=== PATIENT | male | born 1990 | race Caucasian/White ===

== ENCOUNTER 2019-07-15 16:33 | Observation (INO) ==
[~2019-07-15 16:33] MED LIST: Aminoglycoside Consult 1 EACH MC ONE
[2019-07-15] MEDS ORDERED: Clindamycin 600 MG/50 ML 600 MG/50 ML IV.SOLN IVPB ONE (19:02)
[2019-07-15] MEDS ORDERED: Ketorolac 15 MG/ML VIAL IVP ONE (19:04)
[2019-07-15 20:40] LABS: Basophils % 0.4 %; Eosinophils # 0.1 K/mcL (0.0-0.6); Eosinophils % 1.1 %; Hematocrit 42.1 % (37.5-50.1); Hemoglobin 14.5 g/dL (12.9-16.9); Immature Granulocytes % 0.3 % (0-4); Lymphocytes # 2.3 K/mcL (0.6-4.6); Lymphocytes % 20.3 %; Mean Corpuscular HGB Conc 34.4 g/dL (31.6-35.5); Mean Corpuscular Hemoglobin 29.8 pg (28.0-33.3); Mean Corpuscular Volume 86.4 fL (83.0-100.0); Mean Platelet Volume 9.4 fL (9.4-12.4); Monocytes # 1.1 K/mcL (0.0-1.3); Monocytes % 9.8 %; Neutrophils # 7.7 K/mcL (1.6-8.9); Platelet Count 305 K/mcL (140-400); Red Blood Count 4.87 M/mcL (4.19-5.50); Red Cell Distribution Width 12.4 % (11.5-14.5); Segmented Neutrophils % 68.1 %; White Blood Count 11.3 K/mcL (4.3-11.1)
[2019-07-15 21:34] LABS: Alanine Aminotransferase 14 Units/L (7-52); Albumin 4.1 g/dL (3.5-5.7); Albumin/Globulin Ratio 1.3 (1.1-2.2); Alkaline Phosphatase 71 Units/L (34-104); Aspartate Amino Transferase 14 Units/L (13-39); BUN/Creatinine Ratio 17 (6-26); Bilirubin,Total 0.5 mg/dL (0.3-1.0); Blood Urea Nitrogen 20 mg/dL (6-20); Calcium 9.4 mg/dL (8.6-10.3); Carbon Dioxide 25 mEq/L (23-29); Chloride 102 mEq/L (98-107); Globulin 3.1 g/dL (2.4-3.5); Glucose 126 mg/dL (70-105); Osmolality,Calculated 282 (280-300); Potassium 4.2 mEq/L (3.5-5.1); Sodium 134 mEq/L (136-145); Total Protein 7.2 g/dL (6.4-8.9); eGFR For African Americans > 60 (> 60); eGFR For Non-African Americans > 60 (> 60)
[2019-07-15] MEDS ORDERED: Isovue-370 500 ML BOTTLE IVP ONE (23:20)
[2019-07-15] MEDS ORDERED: Naloxone 0.4 MG/ML INJ IVP PRN (23:35)
[2019-07-15] MEDS ORDERED: 0.9 % Sodium Chloride 1,000 ML IV ONE (23:35)
[2019-07-15] MEDS ORDERED: Ketorolac 30 MG/ML VIAL IVP PRN (23:35)
[2019-07-15] MEDS ORDERED: Ondansetron ODT 4 MG TAB.RAPDIS SL PRN (23:35)
[2019-07-15] MEDS ORDERED: cefTRIAXone 2,000 MG in 0.9 % Sodium Chloride Mini Bag 100 ML IVPB ONE (23:37)
[2019-07-15] MEDS ORDERED: Vancomycin (wt based) 1,000 MG VIAL IVPB SCH (23:45)
[2019-07-16 02:50] LABS: Basophils % 0.2 %; Eosinophils # 0.1 K/mcL (0.0-0.6); Eosinophils % 1.1 %; Hematocrit 40.2 % (37.5-50.1); Hemoglobin 13.2 g/dL (12.9-16.9); Immature Granulocytes % 0.3 % (0-4); Lymphocytes # 1.8 K/mcL (0.6-4.6); Lymphocytes % 17.5 %; Mean Corpuscular HGB Conc 32.8 g/dL (31.6-35.5); Mean Corpuscular Hemoglobin 29.8 pg (28.0-33.3); Mean Corpuscular Volume 90.7 fL (83.0-100.0); Mean Platelet Volume 9.5 fL (9.4-12.4); Monocytes # 0.8 K/mcL (0.0-1.3); Neutrophils # 7.4 K/mcL (1.6-8.9); Platelet Count 259 K/mcL (140-400); Red Blood Count 4.43 M/mcL (4.19-5.50); Red Cell Distribution Width 12.4 % (11.5-14.5); Segmented Neutrophils % 72.9 %; White Blood Count 10.2 K/mcL (4.3-11.1)
[2019-07-16 03:10] LABS: BUN/Creatinine Ratio 21 (6-26); Blood Urea Nitrogen 21 mg/dL (6-20); Calcium 8.6 mg/dL (8.6-10.3); Carbon Dioxide 24 mEq/L (23-29); Chloride 104 mEq/L (98-107); Glucose 124 mg/dL (70-105); Osmolality,Calculated 282 (280-300); Sodium 134 mEq/L (136-145); eGFR For African Americans > 60 (> 60); eGFR For Non-African Americans > 60 (> 60)
[2019-07-16 10:39] LABS: Estimated Average Glucose 100 mg/dl
[2019-07-16 11:13] VITALS: BP 132/74
== END 2019-07-16 14:21 | disposition home or self-care (01) ==
LOC: 3ANU 16:33 → EMEROOARM 16:33 → 3ANU 23:20
PROVIDERS: ADMIT Internal Medicine; ATTEND Internal Medicine

== ENCOUNTER 2021-10-21 17:01 | Inpatient (IN) ==
[2021-10-21 18:29] LABS: Basophils % 0.2 %; Eosinophils # 0.1 K/mcL (0.0-0.6); Eosinophils % 0.7 %; Hematocrit 34.7 % (37.5-50.1); Hemoglobin 12.5 g/dL (12.9-16.9); Immature Granulocytes % 0.3 % (0-4); Lymphocytes # 1.8 K/mcL (0.6-4.6); Lymphocytes % 16.1 %; Mean Corpuscular Hemoglobin 31.2 pg (28.0-33.3); Mean Corpuscular Volume 86.5 fL (83.0-100.0); Mean Platelet Volume 9.4 fL (9.4-12.4); Monocytes # 0.8 K/mcL (0.0-1.3); Monocytes % 6.8 %; Neutrophils # 8.3 K/mcL (1.6-8.9); Platelet Count 264 K/mcL (140-400); Red Blood Count 4.01 M/mcL (4.19-5.50); Red Cell Distribution Width 12.7 % (11.5-14.5); Segmented Neutrophils % 75.9 %
[2021-10-21 18:51] LABS: BUN/Creatinine Ratio 17 (6-26); Blood Urea Nitrogen 17 mg/dL (6-20); Calcium 9.5 mg/dL (8.6-10.3); Carbon Dioxide 25 mEq/L (23-29); Chloride 102 mEq/L (98-107); Glucose 97 mg/dL (70-105); Osmolality,Calculated 281 (280-300); Potassium 3.9 mEq/L (3.5-5.1); Sodium 135 mEq/L (136-145); eGFR For African Americans > 60 (> 60); eGFR For Non-African Americans > 60 (> 60)
[2021-10-21 19:00] LABS: Troponin I 0.05 ng/mL (< 0.04)
[2021-10-21] MEDS ORDERED: Aspirin 325 MG TABLET PO ONE (19:25)
[2021-10-21] MEDS ORDERED: Naloxone 0.4 MG/ML INJ IVP PRN (20:05)
[2021-10-21] MEDS ORDERED: Ondansetron 4 MG/2 ML VIAL IVP PRN (20:05)
[2021-10-21] MEDS ORDERED: Perflutren Lipid Microsphere 1.3 ML in 0.9 % Sodium Chloride 8.7 ML IVP PRN (20:08)
[2021-10-21 22:12] LABS: Bilirubin,Urine Negative (Negative); Blood,Urine Negative (Negative); Clarity,Urine Clear (Clear); Color,Urine Yellow (Yellow); Glucose,Urine (UA) Normal (Normal); Ketones,Urine Negative (Negative); Leukocyte Esterase,Urine Negative (Negative); Nitrite,Urine Negative (Negative); Protein,Urine Trace mg/dL (Neg-Trace); Specific Gravity,Urine > 1.030 (1.010-1.025); Urobilinogen,Urine Normal (Normal)
[2021-10-21 22:13] LABS: Amphetamine Screen,Urine Negative ng/mL (Cutoff=1000); Barbiturate Screen,Urine Negative ng/mL (Cutoff=200); Benzodiazepines Screen,Urine Negative ng/mL (Cutoff=200); Cannabinoid Screen,Urine Negative ng/mL (Cutoff = 50); Cocaine Screen,Urine Negative ng/mL (Cutoff= 300); Opiate Screen,Urine Negative ng/mL (Cutoff=300); Phencyclidine Screen,Urine Negative ng/mL (Cutoff=25)
[2021-10-22 04:42] LABS: Basophils % 0.3 %; Eosinophils # 0.2 K/mcL (0.0-0.6); Eosinophils % 1.8 %; Hematocrit 39.1 % (37.5-50.1); Hemoglobin 13.2 g/dL (12.9-16.9); Immature Granulocytes % 0.3 % (0-4); Mean Corpuscular HGB Conc 33.8 g/dL (31.6-35.5); Mean Corpuscular Hemoglobin 29.1 pg (28.0-33.3); Mean Corpuscular Volume 86.1 fL (83.0-100.0); Mean Platelet Volume 9.7 fL (9.4-12.4); Monocytes # 0.8 K/mcL (0.0-1.3); Monocytes % 8.1 %; Neutrophils # 5.7 K/mcL (1.6-8.9); Platelet Count 290 K/mcL (140-400); Red Blood Count 4.54 M/mcL (4.19-5.50); Red Cell Distribution Width 12.9 % (11.5-14.5); Segmented Neutrophils % 58.5 %; White Blood Count 9.8 K/mcL (4.3-11.1)
[2021-10-22 04:54] LABS: INR 1.2
[2021-10-22 05:24] LABS: Troponin I 0.04 ng/mL (< 0.04)
[2021-10-22 06:06] LABS: Alanine Aminotransferase 15 Units/L (7-52); Albumin 3.8 g/dL (3.5-5.7); Albumin/Globulin Ratio 1.3 (1.1-2.2); Alkaline Phosphatase 62 Units/L (34-104); Aspartate Amino Transferase 16 Units/L (13-39); BUN/Creatinine Ratio 18 (6-26); Bilirubin,Direct 0.1 mg/dL (0.0-0.2); Bilirubin,Indirect 0.5 mg/dL (0.0-1.0); Bilirubin,Total 0.6 mg/dL (0.3-1.0); Blood Urea Nitrogen 17 mg/dL (6-20); Carbon Dioxide 23 mEq/L (23-29); Chloride 104 mEq/L (98-107); Chol/HDL Ratio 4.4 (0-4.9); Cholesterol 122 mg/dL (< 200); Glucose 112 mg/dL (70-105); HDL Cholesterol 28 mg/dL (40-59); LDL Cholesterol,Calculated 65 mg/dL (< 100); Magnesium 2.3 mg/dL (1.6-2.6); Osmolality,Calculated 290 (280-300); Potassium 3.9 mEq/L (3.5-5.1); Sodium 139 mEq/L (136-145); Thyroid Stimulating Hormone 1.983 mcIU/mL (0.340-5.600); Total Protein 6.8 g/dL (6.4-8.9); Triglycerides 143 mg/dL (< 150); eGFR For African Americans > 60 (> 60); eGFR For Non-African Americans > 60 (> 60)
[2021-10-22] MEDS: Aspirin Enteric Coated 81 MG Tablet PO SCH (08:01)
[2021-10-22] MEDS ORDERED: Heparin 1,000 UNITS/500 mL 500 ML ONE (15:03)
[2021-10-22] MEDS ORDERED: *HR* Midazolam HCl 2 MG/2 ML VIAL ONE ×2 (15:03→15:31)
[2021-10-22] MEDS ORDERED: *HR* FentaNYL (PF) 100 MCG/2 ML VIAL ONE (15:03)
[2021-10-22] MEDS ORDERED: 0.9 % Sodium Chloride 1,000 ML ONE (15:03)
[2021-10-22] MEDS ORDERED: *HR* Heparin 10,000 UNIT/10 ML VIAL ONE (15:03)
[2021-10-22] MEDS ORDERED: Nitroglycerin 1,000 MCG/5 ML VIAL IV ONE (15:04)
[2021-10-22] MEDS ORDERED: ISOVUE-370 200 ML INFUS..BTL ONE (15:04)
[2021-10-22] MEDS: Acetaminophen 325 MG TABLET PO PRN (18:52)
[2021-10-23] MEDS: Aspirin Enteric Coated 81 MG Tablet PO SCH (08:57)
[2021-10-23] MEDS: Metoprolol XL (24 HR) Succ 25 MG TAB.ER.24H PO SCH (20:14)
[2021-10-24] MEDS: Aspirin Enteric Coated 81 MG Tablet PO SCH (08:23)
[2021-10-24] MEDS: Metoprolol XL (24 HR) Succ 25 MG TAB.ER.24H PO SCH (08:23)
[2021-10-24] MEDS ORDERED: lisinopriL 10 MG TABLET PO SCH (09:00)
[2021-10-24] MEDS: lisinopriL 5 MG TABLET PO SCH (09:07)
[2021-10-24] MEDS ORDERED: *HR* FentaNYL (PF) 100 MCG/2 ML VIAL ONE (15:16)
[2021-10-24] MEDS ORDERED: *HR* Propofol 200 MG/20 ML VIAL IVP ONE (15:16)
[2021-10-24] MEDS ORDERED: *HR* Midazolam HCl 2 MG/2 ML VIAL ONE (15:16)
[2021-10-24] MEDS ORDERED: *HR* Rocuronium Bromide 50 MG/5 ML VIAL ONE ×2 (15:17→15:46)
[2021-10-24] MEDS ORDERED: Ondansetron 4 MG/2 ML VIAL ONE (15:17)
[2021-10-24] MEDS ORDERED: Lidocaine -MPF 2% 2 ML VIAL ONE (15:17)
[2021-10-24] MEDS ORDERED: Lidocaine HCL 4 ML Topical Solution (Laryng-O-Jet Kit Sterile Pak) TP ONE (15:17)
[2021-10-24] MEDS ORDERED: Sugammadex Sodium 200 MG/2 ML VIAL IV ONE (15:20)
[2021-10-24] MEDS ORDERED: 0.9 % Sodium Chloride 500 ML ONE (15:20)
[2021-10-24] MEDS ORDERED: *HR* Vasopressin 20 UNIT/ML VIAL ONE (15:22)
[2021-10-24] MEDS ORDERED: 0.9 % Sodium Chloride 1,000 ML ONE (15:33)
[2021-10-24] MEDS ORDERED: Metoprolol XL (24 HR) Succ 25 MG TAB.ER.24H PO SCH (21:00)
[2021-10-25] MEDS: lisinopriL 5 MG TABLET PO SCH (08:52)
[2021-10-25] MEDS: Aspirin Enteric Coated 81 MG Tablet PO SCH (08:52)
[2021-10-25 09:06] LABS: Basophils % 0.1 %; Hematocrit 41.1 % (37.5-50.1); Immature Granulocytes % 0.2 % (0-4); Lymphocytes # 1.4 K/mcL (0.6-4.6); Lymphocytes % 9.6 %; Mean Corpuscular HGB Conc 34.1 g/dL (31.6-35.5); Mean Corpuscular Hemoglobin 29.4 pg (28.0-33.3); Mean Corpuscular Volume 86.2 fL (83.0-100.0); Mean Platelet Volume 9.7 fL (9.4-12.4); Monocytes # 0.7 K/mcL (0.0-1.3); Monocytes % 5.1 %; Neutrophils # 12.3 K/mcL (1.6-8.9); Platelet Count 292 K/mcL (140-400); Red Blood Count 4.77 M/mcL (4.19-5.50); Red Cell Distribution Width 12.7 % (11.5-14.5); White Blood Count 14.5 K/mcL (4.3-11.1)
[2021-10-25 09:12] LABS: BUN/Creatinine Ratio 23 (6-26); Blood Urea Nitrogen 21 mg/dL (6-20); Calcium 9.2 mg/dL (8.6-10.3); Carbon Dioxide 23 mEq/L (23-29); Chloride 102 mEq/L (98-107); Glucose 109 mg/dL (70-105); Magnesium 2.1 mg/dL (1.6-2.6); Osmolality,Calculated 280 (280-300); Phosphorous 3.5 mg/dL (2.7-4.5); Potassium 4.3 mEq/L (3.5-5.1); Sodium 133 mEq/L (136-145); eGFR For African Americans > 60 (> 60); eGFR For Non-African Americans > 60 (> 60)
[2021-10-25] MEDS: Acetaminophen 325 MG TABLET PO PRN ×2 (11:51→22:24)
[2021-10-26] MEDS: Acetaminophen 325 MG TABLET PO PRN (07:36)
[2021-10-26] MEDS: Aspirin Enteric Coated 81 MG Tablet PO SCH (07:36)
[2021-10-26] MEDS ORDERED: Metoprolol XL (24 HR) Succ 25 MG TAB.ER.24H PO SCH (09:00)
[2021-10-26] MEDS: Metoprolol XL (24 HR) Succ 25 MG TAB.ER.24H PO SCH ×2 (09:53→10:46)
[2021-10-26 11:17] VITALS: BP 123/68; PULSE 63; TEMP 97.6; O2SAT 98
== END 2021-10-26 13:26 | disposition home or self-care (01) | DRG 281 ==
LOC: 3BNU 17:01 → EMEROOARM 17:01 → SUATTDRO 20:02 → 3BNU 20:45
PROVIDERS: ADMIT Internal Medicine; ATTEND Internal Medicine